=== PATIENT | male | born 1980 | race Caucasian/White ===

== ENCOUNTER 2017-04-24 08:52 | Emergency (ER) | payer BC, OTHER ==
[2017-04-24 09:15] VITALS: BP 135/74
--- NOTE | 2017-04-24 09:24 | UC ---
Throat Pain/Nasal [place] HPI - HPI Summary HPI Summary: sore throat x 2 days, + fever, chills, nasal congestion, cough - History of Current Complaint Chief Complaint: UCGeneralIllness Stated Complaint: SORE THROAT Time Seen by Provider: 04/24/17 09:15 Hx Obtained From: Patient Onset/Duration: Gradual Onset, Lasting Days - 2, Still Present Severity: Moderate Cough: Nonproductive Associated Signs & Symptoms: Positive: Sinus Discomfort, Nasal Discharge, Fever. Negative: Rash - Allergies/Home Medications Allergies/Adverse Reactions: Allergies Allergy/AdvReac Type Severity Reaction Status Date / Time No Known Allergies Allergy Verified 04/24/17 09:06 Home Medications: Home Medications Acetaminophen TAB* [Tylenol TAB*] 500 mg PO Q4H PRN 04/24/17 [History Confirmed 04/24/17] Loratadine & Pseudoephedrine [Claritin-D 24 Hour 10-240 mg] 1 tab PO DAILY PRN 04/24/17 [History Confirmed 04/24/17] Omeprazole CAP* [Prilosec CAP* 20 MG] 20 mg PO DAILY 04/24/17 [History Confirmed 04/24/17] PMH/Surg Hx/FS Hx/Imm Hx Cardiovascular History Of: Reports: Hypertension - prior to bypass - Surgical History Surgical History: Yes Surgery Procedure, Year, and Place: gastric bypass 10/2016 - Family History Known Family History: Negative: Diabetes - Social History Alcohol Use: None Substance Use Type: None Smoking Status (MU): Never Smoked Tobacco Review of Systems Constitutional: Fever, Chills, Fatigue Skin: Negative Eyes: Negative ENT: Sore Throat, Nasal Discharge Respiratory: Cough Cardiovascular: Negative Gastrointestinal: Negative Genitourinary: Negative All Other Systems Reviewed And Are Negative: Yes Physical Exam Triage Information Reviewed: Yes Appearance: Well-Appearing, No Pain Distress, Well-Nourished Vital Signs: Initial Vital Signs Temp 100.0 F 04/24/17 09:09 Pulse 102 04/24/17 09:09 Resp 16 04/24/17 09:09 BP 135/74 04/24/17 09:09 Pulse Ox 98 04/24/17 09:09 Vital Signs Reviewed: Yes Eyes: Positive: Conjunctiva Clear ENT Exam: Normal ENT: Positive: Normal ENT inspection, Hearing grossly normal, Pharyngeal erythema, Nasal congestion, Nasal drainage, TMs normal Neck exam: Normal Neck: Positive: Supple, Nontender, No Lymphadenopathy Respiratory: Positive: Chest non-tender, Lungs clear, Normal breath sounds, No respiratory distress Cardiovascular: Positive: RRR, No Murmur, Pulses Normal Skin Exam: Normal Throat Pain/Nasal Course/Dx - Differential Dx/Diagnosis Provider Diagnoses: pharyngitis Discharge - Discharge Plan Condition: Stable Disposition: HOME Patient Education Materials: Pharyngitis (ED) Referrals: Tati Dorsey MD [Primary Care Provider] - Additional Instructions: viral infection no need for antibiotics at this time follow up with your pcp in one week if not better
== END 2017-04-24 09:37 | disposition home or self-care (01) ==
LOC: UCCORT 08:52
DX: J02.9 Acute pharyngitis, unspecified (principal); R50.9 Fever, unspecified; R09.81 Nasal congestion; R05 Cough; Z98.84 Bariatric surgery status
CPT/HCPCS: 87651; 99201; G0463